=== PATIENT | male | born 1990 | race Caucasian/White ===

== ENCOUNTER 2017-08-14 00:18 | Emergency (ER) | payer BC ==
[2017-08-14] MEDS ORDERED: oxyCODONE/Acetamin 5/325 MG* TAB ONE (02:56)
[2017-08-14] MEDS ORDERED: oxyCODONE/Acetamin 5/325 MG* TAB PO ONE (02:56)
[2017-08-14 03:14] VITALS: BP 123/89
--- NOTE | 2017-08-14 06:11 | ED ---
Norm Jones Nikita, scribed for Roddy Camara MD on 08/14/17 at 0254 . Skin Complaint - HPI Summary HPI Summary: This patient is a 26 year old M presenting to ED with a chief complaint of abscess to his sacral area since 2 days ago. The patient rates the pain 8/10 in severity. Symptoms aggravated by nothing. Symptoms alleviated by nothing. Patient denies fever and vomiting. - History of Current Complaint Chief Complaint: EDRashSkinAbscess Time Seen by Provider: 08/14/17 01:30 Stated Complaint: CYST Hx Obtained From: Patient Onset/Duration: Started Days Ago, Still Present Skin Exposure Onset/Duration: Days Ago Timing: Constant, Lasting Days Onset Severity: Moderate Current Severity: Moderate Pain Intensity: 8 Pain Scale Used: 0-10 Numeric Skin Location: Other: - sacral area Aggravating Symptom(s): Nothing Alleviating Symptom(s): Nothing - Allergy/Home Medications Allergies/Adverse Reactions: Allergies Allergy/AdvReac Type Severity Reaction Status Date / Time No Known Allergies Allergy Verified 08/14/17 00:25 PMH/Surg Hx/FS Hx/Imm Hx Endocrine/Hematology History: Denies: Hx Diabetes Cardiovascular History: Denies: Hx Congestive Heart Failure, Hx Hypertension History: Denies: Hx Dialysis, Hx Renal Disease Infectious Disease History: No Infectious Disease History: Denies: Traveled Outside the [place] in Last 30 Days - Family History Known Family History: Negative: Diabetes - Social History Alcohol Use: None Hx Substance Use: No Substance Use Type: Reports: None Smoking Status (MU): Unknown if Ever Smoked Review of Systems Negative: Fever Negative: Vomiting Positive: Other - abscess to sacral area All Other Systems Reviewed And Are Negative: Yes Physical Exam - Summary Physical Exam Summary: Appearance: Well appearing, no pain distress Skin: warm, dry, reflects adequate perfusion, Large pilonidal cyst that is fluctuant and spontaneously draining pure elements, Top of gluteal cleft, mostly on the R side Head/face: normal Eyes: EOMI, RHEA ENT: normal Neck: supple, non-tender Respiratory: CTA, breath sounds present Cardiovascular: RRR, pulses symmetrical Abdomen: non-tender, soft Bowel Sounds: present Musculoskeletal: normal, strength/ROM intact Neuro: normal, sensory motor intact, A&Ox3 Pelvic: Normal Triage Information Reviewed: Yes Vital Signs On Initial Exam: Initial Vitals Temp Pulse Resp BP Pulse Ox 97.3 F 102 18 131/81 98 08/14/17 00:23 08/14/17 00:23 08/14/17 00:23 08/14/17 00:23 08/14/17 00:23 Vital Signs Reviewed: Yes Procedures - Procedure Summary Procedure Summary: I&D pilonidal cyst: Because it was spontaneously draining, I opened it further with a 11 blade scalpel, broke up the loculations, and packed it with 0.25 iodoform gauze. - Incision and Drainage Site: pilonidal cyst, top of gluteal cleft Instrument(s): Scalpel - 10 blade Packing: Gauze - iodoform Diagnostics - Vital Signs Vital Signs Temp Pulse Resp BP Pulse Ox 08/14/17 00:23 97.3 F 102 18 131/81 98 - Laboratory Lab Statement: Any lab studies that have been ordered have been reviewed, and results considered in the medical decision making process. Course/Dx - Course Course Of Treatment: pt presents with recurrent gluteal cleft area abscess, now spontaneously draining. I opened area further to allow for better draining/ emptying of the wound and packing. Rx abx and pain control and referred to surgery for definitive care. No evidence for surrounding cellulitis. - Differential Diagnoses - Skin Complaint Differential Diagnoses: Other - infected pilonidal cyst - Diagnoses Provider Diagnoses: Infected pilonidal cyst Discharge - Sign-Out/Discharge Documenting (check all that apply): Discharge - Discharge Plan Condition: Stable Disposition: HOME Prescriptions: Cephalexin CAP* [Keflex CAP*] 500 mg PO TID #15 cap Ciprofloxacin TAB* [Cipro 500 MG TAB*] 500 mg PO BID #10 tab Oxycodone HCl/Acetaminophen [Percocet 5-325 mg Tablet] 1 each PO TID PRN #6 tablet MDD 3 PRN Reason: Severe Pain Patient Education Materials: Pilonidal Cyst (ED) Forms: *Work Release Referrals: Serjio Multani MD [Medical Doctor] - Cornelius Dorman MD [Primary Care Provider] - (Follow up with your PCP on Monday to have the packing removed.) Additional Instructions: See your doctor in 1-2 days for packing removal. Return with fever, worse or other concerns. See the surgeon for cyst removal to prevent recurrence. - Billing Disposition and Condition Condition: STABLE Disposition: HOME The documentation as recorded by the scribe, Norm,Kale accurately reflects the service I personally performed and the decisions made by me, Roddy Camara MD.
== END 2017-08-14 03:13 | disposition home or self-care (01) ==
LOC: ED 00:18
DX: L05.01 Pilonidal cyst with abscess (principal)
CPT/HCPCS: 10080; 99282; A9270-GY